=== PATIENT | male | born 1960 | race Caucasian/White ===

== ENCOUNTER 2019-08-01 12:22 | Emergency (ER) | payer MEDICAID, OTHER ==
[~2019-08-01] VITALS: Ht 175.3 cm; Wt 98.4 kg
[2019-08-01] MEDS ORDERED: EPINEPHrine HCL 1 MG/1 ML AMP ONE (12:40)
[2019-08-01] MEDS ORDERED: methylPREDNISolone SOD SUCC 125 MG/2 ML VL ONE (12:40)
[2019-08-01] MEDS ORDERED: diphenhdrAMINE HCL 50 MG/1 ML VL ONE (12:40)
[2019-08-01] MEDS ORDERED: ONDANSETRON HCL 4 MG/2 ML VIAL ONE (12:48)
[2019-08-01] MEDS ORDERED: EPINEPHrine HCL 1 MG/10 ML SYRG IV ONE (13:00)
[2019-08-01] MEDS ORDERED: diphenhdrAMINE HCL 50 MG/1 ML VL IV ONE (13:00)
[2019-08-01] MEDS ORDERED: methylPREDNISolone SOD SUCC 125 MG/2 ML VL IV ONE (13:00)
[2019-08-01 13:07] VITALS: BP 136/84
== END 2019-08-01 15:00 | disposition home or self-care (01) ==
LOC: ER 12:22
DX: T63.441A Toxic effect of venom of bees, accidental (unintentional), initial encounter (principal); T78.40XA Allergy, unspecified, initial encounter; E78.5 Hyperlipidemia, unspecified; I10 Essential (primary) hypertension; Y92.89 Other specified places as the place of occurrence of the external cause
CPT/HCPCS: 96374; 96375; 99283; J0171; J1200; J2405; J2930